=== PATIENT | male | born 1960 | race Caucasian/White ===

== ENCOUNTER 2024-07-24 15:43 | Inpatient (IN) | payer MEDICARE, OTHER ==
[~2024-07-24] VITALS: Ht 175.3 cm; Wt 77.1 kg
[2024-07-24 16:11] LABS: BASOPHILS % (AUTO) 0.6 % (0.0-2.0); EOSINOPHILS # (AUTO) 0.3 K/uL (0.0-0.7); EOSINOPHILS % (AUTO) 4.3 % (0.0-6.0); HEMATOCRIT 30 % (39-51); HEMOGLOBIN 10.1 g/dL (13.5-17.5); LYMPHOCYTES # (AUTO) 2.6 K/uL (0.8-4.8); LYMPHOCYTES % (AUTO) 34.9 % (20.0-44.0); MEAN CORPUSCULAR HEMOGLOBIN 34 PG (26.0-33.0); MEAN CORPUSCULAR HGB CONC 34 g/dl (31.0-36.0); MEAN CORPUSCULAR VOLUME 98 fL (80-96); MONOCYTES # (AUTO) 0.8 K/uL (0.1-1.30); MONOCYTES % (AUTO) 10.4 % (2.0-12.0); NEUTROPHILS # (AUTO) 3.8 K/uL (1.8-8.9); NEUTROPHILS % (AUTO) 49.8 % (43.0-81.0); PLATELET COUNT (AUTO) 271 K/uL (150-450); RED CELL DISTRIBUTION WIDTH 14.6 % (11.5-15.0); WHITE BLOOD COUNT (AUTO) 7.6 K/uL (4.3-11.0)
[2024-07-24 16:17] LABS: CALCIUM, SERUM 8.7 mg/dL (8.5-10.1); CARBON DIOXIDE 26 mmol/L (21-32); CHLORIDE 101 mmol/L (98-107); GLUCOSE 108 mg/dL (74-106); POTASSIUM 3.8 mmol/L (3.5-5.1); SODIUM SERUM 135 mmol/L (136-145); UREA NITROGEN, BLOOD 20 mg/dL (7-18)
[2024-07-24 16:23] LABS: ALANINE AMINOTRANSFERASE 17 U/L (12-78); ALBUMIN 3.2 g/dL (3.4-5.0); ALCOHOL, BLOOD < 3 mg/dL (0-10); ALKALINE PHOSPHATASE 66 U/L (46-116); ASPARTATE AMINOTRANSFERASE 13 U/L (15-37); BILIRUBIN,DIRECT 0.1 mg/dL (0.0-0.2); BILIRUBIN,TOTAL 0.3 mg/dL (0.2-1.0); TOTAL PROTEIN, SERUM 6.2 g/dL (6.4-8.2)
[2024-07-24 16:24] LABS: ACETAMINOPHEN 0 ug/ml (10-30); SALICYLATE 0.8 mg/dL (2.8-20.0)
[2024-07-24] MEDS ORDERED: LORA-259 PO (16:43)
[2024-07-24] MEDS ORDERED: MAG30ORA PO (16:43)
[2024-07-24] MEDS ORDERED: LACT-179 PO (16:43)
[2024-07-24] MEDS ORDERED: MAGN400O6 PO (16:43)
[2024-07-24] MEDS ORDERED: ACET325T53 PO (16:43)
[2024-07-24] MEDS ORDERED: TEMA7.5C12 PO (16:43)
[2024-07-24] MEDS ORDERED: RISP2TAB85 PO (16:43)
[2024-07-24] MEDS ORDERED: GABA-536 PO (16:43)
[2024-07-24] MEDS ORDERED: OLAN5TAB3 PO (16:43)
[2024-07-24] MEDS ORDERED: LORA-258 PO (16:43)
[2024-07-24 17:22] LABS: APPEARANCE,URINE CLEAR (CLEAR); BILIRUBIN,URINE NEGATIVE (NEGATIVE); BLOOD, URINE NEGATIVE Ery/uL (NEGATIVE); COLOR,URINE YELLOW (YELLOW); KETONES,URINE NEGATIVE (NEGATIVE); LEUKOCYTE ESTERASE ,URINE NEGATIVE (NEGATIVE); NITRITE, URINE NEGATIVE (NEGATIVE); PROTEIN,URINE NEGATIVE (NEGATIVE); UGLUCOSE NEGATIVE (NEGATIVE); UROBILINOGEN,URINE 0.2 EU/dL (0.2)
[2024-07-24 17:36] LABS: AMPHETAMINE, URINE NEGATIVE (NEGATIVE); BARBITURATE, URINE NEGATIVE (NEGATIVE); BENZODIAZEPINE, URINE NEGATIVE (NEGATIVE); CANNABINOID, URINE NEGATIVE (NEGATIVE); COCCAINE, URINE NEGATIVE (NEGATIVE); OPIATE, URINE NEGATIVE (NEGATIVE); PHENCYCLIDINE SCREEN,URINE NEGATIVE (NEGATIVE)
[2024-07-24] MEDS ORDERED: OLANZAPINE 10 MG VIAL IM ONE (19:45)
[2024-07-24] MEDS: OLANZAPINE 10 MG VIAL IM ONE (19:49)
[2024-07-24 20:50] VITALS: BP 131/79; TEMP 98.8; O2SAT 98
[2024-07-24] MEDS ORDERED: MAGNESIUM HYDROXIDE 30 ML UDC PO PRN (21:00)
[2024-07-24] MEDS ORDERED: LORAZEPAM 0.5 MG TABLET PO PRN (21:00)
[2024-07-24] MEDS: BLOOD SUGAR DIAGNOSTIC 1 EACH STRIP IN ONE (21:38)
[2024-07-25] MEDS: TEMAZEPAM 7.5 MG CAPSULE PO PRN ×2 (00:15→22:22)
[2024-07-25] MEDS: LORAZEPAM 0.5 MG TABLET PO PRN (02:35)
[2024-07-25] MEDS: ACETAMINOPHEN 325 MG TABLET PO PRN (02:35)
[2024-07-25] MEDS: OLANZAPINE 10 MG VIAL IM ONE (04:35)
[2024-07-25 08:03] LABS: BILIRUBIN,TOTAL 0.4 mg/dL (0.2-1.0); CALCIUM, SERUM 9.1 mg/dL (8.5-10.1); CREATININE 0.8 mg/dL (0.6-1.3); POTASSIUM 4.4 mmol/L (3.5-5.1); TOTAL PROTEIN, SERUM 6.1 g/dL (6.4-8.2)
[2024-07-25 08:21] LABS: CHOLESTEROL 164 mg/dL (<200); HDL CHOLESTEROL 89 mg/dL (40-60); LDL 68 mg/dL (0-99); TRIGLYCERIDES 28 mg/dL (30-150)
[2024-07-25] MEDS: LORAZEPAM 1 MG TABLET PO PRN (09:34)
[2024-07-25] MEDS: GABAPENTIN 400 MG CAPSULE PO SCH (09:34)
[2024-07-25] MEDS: OLANZAPINE 5 MG TABLET PO SCH (10:05)
[2024-07-25] MEDS: risperiDONE 1 MG TABLET PO SCH ×2 (10:05→21:03)
[2024-07-25 19:54] VITALS: BP 137/85; TEMP 98.8; O2SAT 99
[2024-07-25 20:00] VITALS: BP 137/85; TEMP 98.8; O2SAT 99
[2024-07-26] MEDS: OLANZAPINE 10 MG VIAL IM ONE (01:43)
[2024-07-26] MEDS: OLANZAPINE 5 MG TABLET PO SCH (13:17)
[2024-07-27] MEDS: MAG HYDROX/AL HYDROX/SIMETH 30 ML UDC PO PRN (02:56)
[2024-07-27 08:00] VITALS: BP 158/72; TEMP 98.3; O2SAT 98
[2024-07-27 16:00] VITALS: BP 107/57; TEMP 97.1; O2SAT 100
[2024-07-27 20:35] VITALS: BP 127/77; TEMP 97.7; O2SAT 100
[2024-07-28 08:00] VITALS: BP 112/82; TEMP 97.5; O2SAT 97
[2024-07-28 15:58] VITALS: BP 114/52; TEMP 98.9; O2SAT 100
[2024-07-28 20:24] VITALS: BP 116/75; TEMP 98.5; O2SAT 97
[2024-07-29 08:00] VITALS: BP 121/79; TEMP 97.8; O2SAT 98
[2024-07-29 15:59] VITALS: BP 120/73; TEMP 98.7; O2SAT 98
[2024-07-29 20:04] VITALS: BP 115/55; TEMP 98.9; O2SAT 95
[2024-07-30 08:00] VITALS: BP 135/74; TEMP 98.6; O2SAT 100
[2024-07-30 16:00] VITALS: BP 115/70; TEMP 98.2; O2SAT 94
[2024-07-30 20:20] VITALS: BP 117/58; TEMP 98; O2SAT 97
[2024-07-31 08:00] VITALS: BP 125/84; TEMP 97.8; O2SAT 98
[2024-07-31 16:00] VITALS: BP 103/71; TEMP 98.6; O2SAT 100
[2024-07-31 20:00] VITALS: BP 115/59; TEMP 97.9; O2SAT 100
[2024-07-31 20:40] VITALS: BP 115/59; TEMP 97.9; O2SAT 99
[2024-08-01 16:00] VITALS: BP 117/87; TEMP 98.2; O2SAT 100
[2024-08-01 20:01] VITALS: BP 135/79; TEMP 98.7; O2SAT 100
[2024-08-02 08:00] VITALS: BP 130/79; TEMP 98; O2SAT 100
[2024-08-02 16:00] VITALS: BP 129/78; TEMP 97.9; O2SAT 98
[2024-08-02 21:08] VITALS: BP 121/59; TEMP 97.9; O2SAT 100
[2024-08-03 08:00] VITALS: BP 146/81; TEMP 98.2; O2SAT 100
[2024-08-03 16:00] VITALS: BP 114/65; TEMP 98; O2SAT 96
[2024-08-03 20:48] VITALS: BP 139/60; TEMP 97.9; O2SAT 97
[2024-08-04 08:00] VITALS: BP 122/83; TEMP 98.1; O2SAT 99
[2024-08-04 15:25] VITALS: BP 122/67; TEMP 98.2; O2SAT 98
[2024-08-04 20:15] VITALS: BP 136/72; TEMP 98.6; O2SAT 100
[2024-08-05 08:00] VITALS: BP 127/77; TEMP 97.8; O2SAT 100
[2024-08-05 16:00] VITALS: BP 115/87; TEMP 97.8; O2SAT 99
[2024-08-05 19:59] VITALS: BP 121/62; TEMP 97.9; O2SAT 98
[2024-08-06 08:00] VITALS: BP 109/74; TEMP 97.7; O2SAT 96
== END 2024-08-06 13:20 | DRG 885 ==
LOC: ER 15:59 → GPS 20:04
PROVIDERS: ADMIT Nurse Practitioner Psychiatric/Mental Health; ATTEND Internal Medicine
DX: F25.0 Schizoaffective disorder, bipolar type (principal); F29 Unspecified psychosis not due to a substance or known physiological condition; F25.9 Schizoaffective disorder, unspecified; F41.9 Anxiety disorder, unspecified; G62.9 Polyneuropathy, unspecified; G47.00 Insomnia, unspecified; M47.9 Spondylosis, unspecified; Z79.899 Other long term (current) drug therapy; Z73.6 Limitation of activities due to disability; F17.210 Nicotine dependence, cigarettes, uncomplicated; D53.9 Nutritional anemia, unspecified
CPT/HCPCS: 36415; 80048-TC; 80053-TC; 80061-TC; 80076-TC; 82962-TC; 85025-TC; G0480; J3490